=== PATIENT | male | born 1945 | race African-American/Black ===

== ENCOUNTER 2017-02-25 12:03 | Emergency (ER) | payer OTHER ==
[~2017-02-25] VITALS: Ht 180.3 cm; Wt 104.3 kg
[2017-02-25 12:38] LABS: HEMATOCRIT 47.6 % (42.0-52.0); HEMOGLOBIN 16.2 gm/dL (14.0-18.0); MCH 33.7 pg (26.0-34.0); PLATELET COUNT 296 thou/uL (150-400); RBC 4.81 mil/uL (4.50-6.00); RDW 15.6 % (10.5-14.5)
[2017-02-25 12:41] LABS: MANUAL DIFF YES
[2017-02-25 12:58] LABS: ANION GAP 12 mmol/L (7-16); BUN 17 mg/dL (7-18); CALCIUM 9.3 mg/dL (8.5-10.1); CHLORIDE 102 mmol/L (98-107); CO2 25 mmol/L (21-32); CREATININE 2.1 mg/dL (0.7-1.3); GLUCOSE 141 mg/dL (74-106); POTASSIUM 3.2 mmol/L (3.5-5.1); SODIUM 139 mmol/L (136-145)
[2017-02-25 13:06] LABS: TROPONIN-I < 0.04 ng/mL (<0.04-0.07)
[2017-02-25 13:43] VITALS: BP 171/88
[2017-02-25 13:51] LABS: ABSOLUTE NEUTROPHILS 11.9 thou/uL (1.4-8.2); TOTAL CELL COUNT 100
== END 2017-02-25 13:49 | disposition home or self-care (01) ==
LOC: ER 12:03
PROVIDERS: Physician Assistant
DX: R55 Syncope and collapse (principal); D72.829 Elevated white blood cell count, unspecified; N28.9 Disorder of kidney and ureter, unspecified; I10 Essential (primary) hypertension; F10.99 Alcohol use, unspecified with unspecified alcohol-induced disorder

== ENCOUNTER 2020-11-30 01:18 | Emergency (ER) | payer OTHER ==
[~2020-11-30] VITALS: Ht 182.9 cm; Wt 54.4 kg
--- NOTE | ~2020-11-30 | EMS ---
[address] [address] EMS Patient Care Report Name: EARL RAMIREZ Room #: DEP JOSHUA Marks#: [id number] Admission: 11/30/20 Attend Phys: Discharge: 11/30/20 Date of : 45 Report #: [id number] THIS REPORT FOR: //name// Report Transmitted: 12/01/2020 19:57 EMS Care Summary [place], [place]/[facility] Incident [id number] @ 11/30/2020 00:29 Incident Location [address] [place] [address] Patient FEROZ RAMIREZ Male, 74 Years 1945 Patient Address [address] [place] [address] [address] [place] [phone] Patient History Hypertension (HTN),Hyperlipidemia,Gout,Coronary Artery Disease (CAD), Patient Allergies Lisinopril,Other drug allergy, Patient Medications Allopurinol, Clopidogrel, Folic acid, Levetiracetam, ASA, Chief Complaint Cardiac arrest, asystole Disposition Transported [place] Dispatch Reason Cardiac Arrest/ Transported To [facility] Narrative Called for a cardiac arrest. Upon arrival, [place] staff performing CPR with BVM & O2. Pt was last seen approx 3-4 hours prior and was found by staff on routine checks to be pulse and non-breathing. P37 on the scene first and had applied [address] [address] EMS Patient Care Report Name: EARL RAMIREZ Room #: DEP [facility]#: [id number] Admission: 11/30/20 Attend Phys: Discharge: 11/30/20 Date of : 45 Report #: [id number] their AED and it advised them to shock the pt, AED charging as we walked into the room and shock was delivered. CPR cont with BVM. Pt was log rolled to check for lividity, it was questionable if it was present, pt was still warm; however he was under the covers when found. CPR continued. iGel inserted and pt suctioned. 4 Lead applied. 18g IV attempted x 2 w/o success. I/O obtained. 1.0mg Epi given x 6 with rhythm and pulse checks in between. D-stick obtained. ADC arrived and mechanical CPR machine placed on the pt. No change in rhythm the whole time, asystole in all leads. At 25 min araceli pt was moved to EMS cot and loaded into the ambulance w/o incident. En route: cont CPR, Epi and ventilations. RR to ER. Arrived: pt taken to ER #7 and moved to their bed w/o incident. Pt care & report to ER staff. Initial Vitals @01:13P: 112,EtCO2: 0, @01:20P: 80, @00:39P: 28, @01:01P: 164,EtCO2: 0, @00:45P: 201,Glucose: 66, @00:59P: 181,EtCO2: 5, @01:42IvES3: 4, @01:18P: 152, @01:15P: 145, @00:44P: 26, @00:56P: 169,EtCO2: 8, @01:17P: 43, @01:10P: 95,EtCO2: 0, @01:16P: 161, @00:38P: 104,R: 0,Pain: 0/10,GCS: 3,DE Suspected: false @00:56P: 169,EtCO2: 8, @01:07P: 205,EtCO2: 4, @01:05P: 90,EtCO2: 0, @00:46P: 43, @01:23P: 80,R: 8,Pain: 0/10,GCS: 3,EtCO2: 2,DE Suspected: false @01:04P: 92,R: 32,EtCO2: 0, @00:51P: 39, @00:45P: 134, @01:02P: 91,R: 80,EtCO2: 10, @00:56P: 150, @01:07P: 148,EtCO2: 4, Assessments @00:38MENTAL:Unresponsive,SKIN:HEENT:Eyes: Left Pupil: 5-mm,Eyes: Right: Non-Reactive,Eyes: Left: Non-Reactive,Eyes: Right Pupil: 5-mm,LUNG SOUNDS:General: Other,ABDOMEN:General: Other,PELVIS//GI:Incontinence,EXTREMITIES:Left Arm: No Abnormalities,Right Arm: No Abnormalities,Left Leg: No Abnormalities,Right Leg: No [facility] [address] [place] [address] EMS Patient Care Report Name: EARL RAMIREZ Room #: DEP [facility]#: [id number] Admission: 11/30/20 Attend Phys: Discharge: 11/30/20 Date of : 45 Report #: [id number] Abnormalities,PULSE:Radial: Absent,Carotid: Absent,NEURO: Impression Cardiac arrest Procedures @00:51Epinephrine 1:10 - 1 Milligrams (mg) - Intraosseous (IO)Response: Unchanged@00:47Epinephrine 1:10 - 1 Milligrams (mg) - Intraosseous (IO)Response: Unchanged@00:44Saline Lock cc (18 ga) Site: Antecubital-RightResponse: UnchangedFailed@01:07Epinephrine 1:10 - 1 Milligrams (mg) - Intraosseous (IO)Response: Unchanged@01:13Epinephrine 1:10 - 1 Milligrams (mg) - Intraosseous (IO)Response: Unchanged@PTAResponse: UnchangedSucceeded@00:56Epinephrine 1:10 - 1 Milligrams (mg) - Intraosseous (IO)Response: Unchanged@01:00Epinephrine 1:10 - 1 Milligrams (mg) - Intraosseous (IO)Response: Unchanged@PTAResponse: UnchangedSucceeded@PTAOxygen FlowRate: 15 Device: Bag Valve Mask (BVM) Response: UnchangedSucceeded@00:39Oxygen FlowRate: 15 Device: Bag Valve Mask (BVM) Response: UnchangedSucceeded@00:40iGEL Response: UnchangedSucceeded@00:41Suction Response: UnchangedSucceeded@00:38ALS AssessmentResponse: UnchangedSucceeded@00:43Saline Lock cc (18 ga) Site: Forearm-RightResponse: UnchangedFailed@00:45Normal Saline (.9% NaCl) 8cc (EZ-IO (Yellow 45mm)) Site: JS-Opnhtsg-DhhhiYsanswyo: UnchangedSucceeded@00:53Response: UnchangedSucceeded@00:543-Lead ECGResponse: UnchangedSucceeded@01:02StretcherResponse: Unchanged Timeline ENDOCRINOLOGY SPECIALIST,Response: UnchangedSucceeded, ENDOCRINOLOGY SPECIALIST,Response: UnchangedSucceeded, ENDOCRINOLOGY SPECIALIST,Oxygen FlowRate: 15 Device: Bag Valve Mask (BVM) Response: UnchangedSucceeded, 00:28,Call Received 00:28,Dispatch Notified 00:29,Dispatched 00:31,En Route 00:35,On Scene 00:38,At Patient 00:38,ALS Assessment,Response: UnchangedSucceeded, 00:38,BP: / M,PULSE: 104,RR: 0 R,SPO2: Ox,ETCO2: ,BG: ,PAIN: 0,GCS: 3, 00:39,Oxygen FlowRate: 15 Device: Bag Valve Mask (BVM) Response: UnchangedSucceeded, 00:39,BP: / M,PULSE: 28,RR: R,SPO2: Ox,ETCO2: ,BG: ,PAIN: ,GCS: , 00:40,iGEL Response: UnchangedSucceeded, 00:41,Suction Response: UnchangedSucceeded, 00:43,Saline Lock cc 18 ga Site: Forearm-Right,Response: UnchangedFailed, 00:44,BP: / M,PULSE: 26,RR: R,SPO2: Ox,ETCO2: ,BG: ,PAIN: ,GCS: , 00:44,Saline Lock cc 18 ga Site: Antecubital-Right,Response: UnchangedFailed, [address] [address] EMS Patient Care Report Name: EARL RAMIREZ Room #: DEP JOSHUA Marks#: [id number] Admission: 11/30/20 Attend Phys: Discharge: 11/30/20 Date of : 45 Report #: [id number] 00:45,BP: / M,PULSE: 201,RR: R,SPO2: Ox,ETCO2: ,B,PAIN: ,GCS: , 00:45,Normal Saline (.9% NaCl) 8cc EZ-IO (Yellow 45mm) Site: EY-Mrhsurn-Dmzpv,Response: UnchangedSucceeded, 00:45,BP: / M,PULSE: 134,RR: R,SPO2: Ox,ETCO2: ,BG: ,PAIN: ,GCS: , 00:46,BP: / M,PULSE: 43,RR: R,SPO2: Ox,ETCO2: ,BG: ,PAIN: ,GCS: , 00:47,Epinephrine 1:10 - 1 Milligrams (mg) - Intraosseous (IO),Response: Unchanged 00:51,BP: / M,PULSE: 39,RR: R,SPO2: Ox,ETCO2: ,BG: ,PAIN: ,GCS: , 00:51,Epinephrine 1:10 - 1 Milligrams (mg) - Intraosseous (IO),Response: Unchanged 00:53,Response: UnchangedSucceeded, 00:54,3-Lead ECG,Response: UnchangedSucceeded, 00:56,BP: / M,PULSE: 169,RR: R,SPO2: Ox,ETCO2: 8 ,BG: ,PAIN: ,GCS: , 00:56,Epinephrine 1:10 - 1 Milligrams (mg) - Intraosseous (IO),Response: Unchanged 00:56,BP: / M,PULSE: 169,RR: R,SPO2: Ox,ETCO2: 8 ,BG: ,PAIN: ,GCS: , 00:56,BP: / M,PULSE: 150,RR: R,SPO2: Ox,ETCO2: ,BG: ,PAIN: ,GCS: , 00:59,BP: / M,PULSE: 181,RR: R,SPO2: Ox,ETCO2: 5 ,BG: ,PAIN: ,GCS: , 01:00,Epinephrine 1:10 - 1 Milligrams (mg) - Intraosseous (IO),Response: Unchanged 01:00,BP: / M,PULSE: ,RR: R,SPO2: Ox,ETCO2: 4 ,BG: ,PAIN: ,GCS: , 01:01,BP: / M,PULSE: 164,RR: R,SPO2: Ox,ETCO2: 0 ,BG: ,PAIN: ,GCS: , 01:02,Stretcher,Response: Unchanged 01:02,BP: / M,PULSE: 91,RR: 80 R,SPO2: Ox,ETCO2: 10 ,BG: ,PAIN: ,GCS: , 01:04,BP: / M,PULSE: 92,RR: 32 R,SPO2: Ox,ETCO2: 0 ,BG: ,PAIN: ,GCS: , 01:05,BP: / M,PULSE: 90,RR: R,SPO2: Ox,ETCO2: 0 ,BG: ,PAIN: ,GCS: , 01:07,Epinephrine 1:10 - 1 Milligrams (mg) - Intraosseous (IO),Response: Unchanged 01:07,BP: / M,PULSE: 205,RR: R,SPO2: Ox,ETCO2: 4 ,BG: ,PAIN: ,GCS: , 01:07,Depart Scene 01:07,BP: / M,PULSE: 148,RR: R,SPO2: Ox,ETCO2: 4 ,BG: ,PAIN: ,GCS: , 01:10,BP: / M,PULSE: 95,RR: R,SPO2: Ox,ETCO2: 0 ,BG: ,PAIN: ,GCS: , 01:13,Epinephrine 1:10 - 1 Milligrams (mg) - Intraosseous (IO),Response: Unchanged 01:13,BP: / M,PULSE: 112,RR: R,SPO2: Ox,ETCO2: 0 ,BG: ,PAIN: ,GCS: , 01:15,At Destination 01:15,BP: / M,PULSE: 145,RR: R,SPO2: Ox,ETCO2: ,BG: ,PAIN: ,GCS: , 01:16,BP: / M,PULSE: 161,RR: R,SPO2: Ox,ETCO2: ,BG: ,PAIN: ,GCS: , 01:17,BP: / M,PULSE: 43,RR: R,SPO2: Ox,ETCO2: ,BG: ,PAIN: ,GCS: , 01:18,BP: / M,PULSE: 152,RR: R,SPO2: Ox,ETCO2: ,BG: ,PAIN: ,GCS: , 01:20,BP: / M,PULSE: 80,RR: R,SPO2: Ox,ETCO2: ,BG: ,PAIN: ,GCS: , 01:23,BP: / M,PULSE: 80,RR: 8 R,SPO2: Ox,ETCO2: 2 ,BG: ,PAIN: 0,GCS: 3, 01:38,Call Closed Disclaimer v1.1 Copyright 2020 [employer] [address] [place] [address] EMS Patient Care Report Name: JAMESEARLHEENA THAPA Room #: DEP JOSHUA Marks#: [id number] Admission: 11/30/20 Attend Phys: Discharge: 11/30/20 Date of : 45 Report #: [id number] This EMS Care Summary contains data elements from the applicable legal record (which may be displayed differently). It is designed to provide pertinent information for the following purposes: continuity of care, clinical quality, and state data reporting. The complete legal record is available to ED staff and administrators of the receiving hospital in [employer] Patient Tracker. All data is provided "as is."
== END 2020-11-30 01:24 ==
LOC: ER 01:18
DX: I46.9 Cardiac arrest, cause unspecified (principal); I10 Essential (primary) hypertension